=== PATIENT | male | born 1970 | race Two or more races ===

== ENCOUNTER 2016-11-05 21:46 | Emergency (ER) | payer OTHER ==
[2016-11-05 21:56] VITALS: BP 168/140; PULSE 117; BMI 29.9
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
== END 2016-11-05 22:55 | disposition home or self-care (01) ==
LOC: JER 21:46
PROC: 0HQGXZZ Repair Left Hand Skin, External Approach (ICD-10-PCS; principal; 2016-11-05)
PROC: 0HQCXZZ Repair Left Upper Arm Skin, External Approach (ICD-10-PCS; 2016-11-05)
DX: S41.112A Laceration without foreign body of left upper arm, initial encounter (principal); S60.511A Abrasion of right hand, initial encounter; F17.210 Nicotine dependence, cigarettes, uncomplicated; Y04.2XXA Assault by strike against or bumped into by another person, initial encounter; Y93.89 Activity, other specified; Y92.9 Unspecified place or not applicable
CPT/HCPCS: 12002-25; 99281-25